=== PATIENT | female | born 1955 | race Caucasian/White ===

== ENCOUNTER → 2018-02-09 | Outpatient (CLI) | payer BC ==
[~2018-02-09] MED LIST: CLONIDINE HCL0.2 MG PO; ELMIRON100 MG PO; MULTIVITAMINS1 EAC7 PO; PANTOPRAZOLE SO40 MG PO; PREMARIN0.625 MG PO; TYLENOL; VERAPAMIL ER120 MG PO
--- NOTE | 2018-02-09 11:14 | Diagnostic Imaging Report ---
EXAMINATION: Thyroid ultrasound. CLINICAL HISTORY: Abnormal thyroid function tests COMPARISON: None. . DISCUSSION: Transverse and longitudinal images of the thyroid were obtained utilizing grayscale and color Doppler modalities. The right thyroid lobe measures 4.1 x 1.4 x 1.6 cm and shows normal echogenicity. Superior pole 0.3 cm cyst. No nodule. The left thyroid lobe measures 4.2 x 1.7 x 1.4 cm and shows normal echogenicity. No nodules are seen. The thyroid isthmus measures 0.2 cm and shows normal echogenicity. No nodules are seen. There is no adenopathy. IMPRESSION: Normal appearance of the thyroid gland without nodule. Signed by: Dr. Andrea Mo M.D. on 02/09/2018 11:11 AM
== END ==
LOC: NM 09:37
PROVIDERS: ATTEND Family Medicine
DX: R94.6 Abnormal results of thyroid function studies (principal); R79.89 Other specified abnormal findings of blood chemistry
CPT/HCPCS: 76536

== ENCOUNTER → 2018-03-09 | Day surgery (SDC) | payer BC ==
[~2018-03-09] MED LIST changes: +FENTANYL CITRATE/PF 100MCG/2 ML INJ ONE; +KETAMINE HCL INJ 50 MG/ML 10 ML VIAL ONE; +MIDAZOLAM HCL 2 MG/2 ML VIAL ONE; +PROPOFOL IV EMULSION 10 MG/ML 50 ML VIAL ONE
--- OUTSIDE RECORDS SUMMARY | 2018-03-09 07:33 | XMS REPORT ---
[facility] Address Unknown Phone Unavailable Care Team Providers Care Attendant [place] Name Role Phone PERLA MARTIN Unavailable Unavailable Problems This patient has no known problems. Allergies, Adverse Reactions, Alerts This patient has no known allergies or adverse reactions. Medications This patient has no known medications. Results Test Description Test Time Test Comments Text Results Atomic Results Result Comments US THYROID 2018-02-09 11:10:00 [facility] [address] [address] Patient Name: CARLITA GLYNN MR #: [id number] : 1955 Age/Sex: 62/F Req #: [id number] [facility] Physician: Ordered by: PERLA MARTIN DO Report #: [id number] Location: ID Room/Bed: Procedure: [id number] US/US THYROID Exam Date: 02/09/18 Exam Time: 1029 REPORT STATUS: Signed EXAMINATION: Thyroid ultrasound. CLINICAL HISTORY: Abnormal thyroid function tests COMPARISON: None. . DISCUSSION: Transverse and longitudinal images of the thyroid were obtained utilizing grayscale and color Doppler modalities. The right thyroid lobe measures 4.1 x 1.4 x 1.6 cm and shows normal echogenicity. Superior pole 0.3 cm cyst. No nodule. The left thyroid lobe measures 4.2 x 1.7 x 1.4 cm and shows normal echogenici ty. No nodules are seen. The thyroid isthmus measures 0.2 cm and shows normal echogenicity. No nodules are seen. There is no adenopathy. IMPRESSION: Normal appearance of the thyroid gland without nodule. Signed by: Dr. Mario Guerrero M.D. on 02/09/2018 11:11 AM Dictated By: MARIO GUERRERO MD 1111 Transcribed By: DOLORES on 02/09/18 1111 COPY TO: PERLA MARTIN DO SCR MAMM BILATERAL CORAZON CAD DIGITAL 2018-01-29 15:46:09 - SCR MAMM BILATERAL CORAZON CAD DIGITALBILATERAL DIGITAL SCREENING MAMMOGRAM 3D/2D WITH CAD: 01/27/2018CLINICAL: Asymptomatic. Digital breast tomosynthesis was performed in addition to routine CC and MLO views. Current mammographic images were evaluated by either a [employer] M-Vu or a Xpresocker CAD (computer aided detection system). Comparison is made to exams dated 01/14/2017 mammogram, mammogram, 11/22/2014 mammogram - [facility]-, 07/11/2013 mammogram, and 10/31/2011 mammogram - [facility]. The tissue of both breasts is heterogeneously dense. This may lower the sensitivity of mammography. No suspicious mass, architectural distortion, malignant type calcification, or lymph node abnormality detected. Breast architecture is stable compared to prior exams.IMPRESSION: NEGATIVEThere is no mammographic evidence of malignancy. Resume annual screening mammography in one year. Cate porter/penrad:01/29/2018 15:46:09 End Polisher: Michelle Wan, [facility]-FWletter sent: BIRADS 1-2 Normal Mammogram BI-RADS: 1 Negative SCR MAMM BILATERAL CORAZON CAD DIGITAL 2018-01-29 15:46:09 - SCR MAMM BILATERAL CORAZON CAD DIGITALBILATERAL DIGITAL SCREENING MAMMOGRAM 3D/2D WITH CAD: 01/27/2018CLINICAL: Asymptomatic. Digital breast tomosynthesis was performed in addition to routine CC and MLO views. Current mammographic images were evaluated by either a [employer] M-Vu or a shenzhoufu ImageRenal [employer]cker CAD (computer aided detection system). Comparison is made to exams dated 01/14/2017 mammogram, mammogram, 11/22/2014 mammogram - [facility], 07/11/2013 mammogram, and 10/31/2011 mammogram - [facility]. The tissue of both breasts is heterogeneously dense. This may lower the sensitivity of mammography. No suspicious mass, architectural distortion, malignant type calcification, or lymph node abnormality detected. Breast architecture is stable compared to prior exams.IMPRESSION: NEGATIVEThere is no mammographic evidence of malignancy. Resume annual screening mammography in one year. Cate porter/penrad:01/29/2018 15:46:09 End Polisher: Michelle Wan, [facility]-FWletter sent: BIRADS 1-2 Normal Mammogram BI-RADS: 1 Negative
[2018-03-09 11:50] VITALS: BP 145/93
--- NOTE | 2018-03-09 14:21 | Operative Report ---
DATE OF PROCEDURE: March 09, 2018 REFERRING PHYSICIAN: Dr. Raymond Martin PROCEDURES PERFORMED 1. Esophagogastroduodenoscopy with esophageal dilatation. 2. Flexible sigmoidoscopy. INDICATIONS FOR EGD: Dysphagia. INDICATIONS FOR COLONOSCOPY: Lower abdominal pain, history of Crohn disease and personal history of colon polyps. MEDICATION: Patient was done under MAC. Please see anesthesiologist's note. PROCEDURE: With the patient in the left lateral decubitus position, the flexible fiberoptic Olympus gastroscope was introduced into the esophagus under direct visualization without any difficulty. There was some patchy erythema noted in the distal esophagus. The esophagus was then dilated to size 52-[employer] Mercado. The scope was advanced with ease into the stomach. Mucosa overlying the antrum and the body revealed some patchy intense erythema and low-grade to moderate edema, and biopsies were obtained and sent to stain for H. pylori. Also, minute hyperplastic appearing polyps were noted in the body. Some were partially excised with the cold biopsy forceps. The pylorus was of normal contour and shape. It was intubated with ease. The scope was advanced all the way to the 2nd portion of the duodenum. Biopsies were obtained from the proximal 2nd portion to rule out sprue. The nodule was noted that was minute in bulb and that was biopsied. The scope was then withdrawn back into the stomach and retroflexed. The mucosa overlying the fundus and the cardia appeared to be within normal limits. The scope was then straightened out. It was subsequently withdrawn. Patient tolerated the procedure well. IMPRESSION 1. Esophageal stricture dilated to size 52-[employer] Mercado. 2. Gastritis, biopsied. Biopsies sent to stain for Helicobacter pylori. 3. Gastric polyps, some partially excised with the cold biopsy forceps. 4. Duodenal bulb nodule, biopsied. 5. Rule out sprue. PLAN: Follow up histology. Increase Protonix to 40 mg 1 p.o. a.c. b.i.d. The patient was then turned around. After adequate lubrication of the anal canal, a flexible fiberoptic Olympus colonoscope was inserted into the rectum with ease and advanced to approximately 18 cm from the anal verge. The scope was not advanced any further due to the presence of a large fecal impaction. It was then withdrawn back into the rectum and retroflexed. Moderate size internal hemorrhoids were noted, none of which was actively bleeding. The scope was then straightened out. It was subsequently withdrawn. Patient tolerated the procedure well. IMPRESSION 1. Flexible sigmoidoscopy to approximately 18 cm from the anal verge. Could not advance any further secondary to the presence of a large fecal impaction. 2. Internal hemorrhoids, none actively bleeding. PLAN: Patient will need a followup colonoscopy after a better prep. Job#: [id number] RI cc:PERLA MARTIN DO
== END | disposition home or self-care (01) ==
LOC: OR 07:31
PROVIDERS: ATTEND Internal Medicine Gastroenterology
DX: K50.90 Crohn's disease, unspecified, without complications (principal); Z86.010 Personal history of colon polyps; K31.7 Polyp of stomach and duodenum; K29.70 Gastritis, unspecified, without bleeding; K22.2 Esophageal obstruction; K56.41 Fecal impaction; K31.89 Other diseases of stomach and duodenum; K64.8 Other hemorrhoids; I10 Essential (primary) hypertension; N20.0 Calculus of kidney; Z88.2 Allergy status to sulfonamides; Z88.6 Allergy status to analgesic agent; Z01.810 Encounter for preprocedural cardiovascular examination
CPT/HCPCS: 43239; 43450; 45330; 93005; J2250; 45378

== ENCOUNTER 2019-06-14 15:03 | Emergency (ER) | payer BC ==
[~2019-06-14] VITALS: Ht 175.3 cm; Wt 58.5 kg
[~2019-06-14 15:03] MED LIST changes: -FENTANYL CITRATE/PF 100MCG/2 ML INJ ONE; -KETAMINE HCL INJ 50 MG/ML 10 ML VIAL ONE; -MIDAZOLAM HCL 2 MG/2 ML VIAL ONE; -PROPOFOL IV EMULSION 10 MG/ML 50 ML VIAL ONE
--- NOTE | 2019-06-14 15:41 | Diagnostic Imaging Report ---
Examination: CT BRAIN WO CONTRAST History:Slurred speech. Left lower extremity weakness. Comparison studies:None Technique: Axial images were obtained from the skull base to the vertex. Coronal and sagittal images reconstructed from the axial data. Dose modulation, iterative reconstruction, and/or weight based adjustment of the mA/kV was utilized to reduce the radiation dose to as low as reasonably achievable. Intravenous contrast: None Findings: Scalp: No abnormalities. Bones: No fractures, blastic or lytic lesions. Brain sulci: Appropriate for age. Ventricles: Normal in size and configuration. No hydrocephalus. Extra-axial space: No abnormalities. Parenchyma: Age indeterminate infarct in the right striatocapsular region (right caudate head, anterior limb of the right internal capsule and right putamen). No masses, hemorrhage. Sellar/suprasellar region: No abnormalities. Craniocervical junction: Patent foramen magnum. No Chiari one malformation. Incidental findings: None. 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 No hemorrhage. Dr. Frida Rodriguez discussed findings and recommendations with Dr. Rao on 06/14/2019 at 1536 hours. Signed by: Dr. Frida Rodriguez M.D. on 06/14/2019 3:38 PM
[2019-06-14 15:57] LABS: BASOPHILS % 0.4 % (0.0-1.0); EOSINOPHILS # (AUTO) 0.1 (0.0-0.4); HEMATOCRIT 37.7 % (34.2-44.1); HEMOGLOBIN 12.1 g/dL (12.0-16.0); LYMPHOCYTES # (AUTO) 1.8 (1.0-3.2); LYMPHOCYTES % 35.9 % (18.0-39.1); MEAN CORPUSCULAR HEMOGLOBIN 28.5 pg (28-32); MEAN CORPUSCULAR HGB CONC 32.1 g/dL (31-35); MEAN CORPUSCULAR VOLUME 88.7 fL (81-99); MONOCYTES # (AUTO) 0.6 (0.2-0.8); NEUTROPHILS # (AUTO) 2.5 (2.1-6.9); NEUTROPHILS % 50.5 % (38.7-80.0); PLATELET COUNT 285 x10e3/uL (140-360); RED BLOOD COUNT 4.25 x10e6/uL (3.6-5.1); RED CELL DISTRIBUTION WIDTH 17.5 % (11.7-14.4)
[2019-06-14 16:15] LABS: ALANINE AMINOTRANSFERASE 20 IU/L (0-55); ALBUMIN 3.4 g/dL (3.5-5.0); ALKALINE PHOSPHATASE 102 IU/L (40-150); ANION GAP 8.5 mmol/L (8-16); BLOOD UREA NITROGEN 12 mg/dL (7-26); BUN/CREATININE RATIO 15 (6-25); CALCIUM 9.2 mg/dL (8.4-10.2); CARBON DIOXIDE 26 mmol/L (22-29); CHLORIDE 110 mmol/L (98-107); CREATINE KINASE 41 IU/L (29-168); CREATININE, SERUM 0.78 mg/dL (0.57-1.11); EST GLOMERULAR FILTRATION RATE > 60 ML/MIN (60-); GLUCOSE 126 mg/dL (74-118); POTASSIUM 3.5 mmol/L (3.5-5.1); SODIUM 141 mmol/L (136-145)
[2019-06-14 17:27] LABS: CLARITY,URINE CLEAR (CLEAR); COLOR,URINE YELLOW (YELLOW); LEUKOCYTE ESTERASE ,URINE NEGATIVE (NEGATIVE)
[2019-06-14 17:28] LABS: BILIRUBIN,URINE NEGATIVE (NEGATIVE); KETONES,URINE NEGATIVE (NEGATIVE); NITRITE,URINE NEGATIVE (NEGATIVE); PROTEIN,URINE DIPSTICK NEGATIVE (NEGATIVE); URINE UROBILINOGEN 0.2 mg/dL (0.2 - 1)
[2019-06-14] MEDS ORDERED: HYDRALAZINE HCL 20 MG/ML VIAL ONE (17:29)
[2019-06-14 17:37] LABS: BACTERIA,URINE MANY /HPF; EPITHELIAL CELLS,URINE FEW /LPF
[2019-06-14] MEDS: HYDRALAZINE HCL 20 MG/ML VIAL IV ONE (17:40)
[2019-06-14] MEDS: ASPIRIN 81 MG CHEW TAB PO ONE (17:40)
[2019-06-14] MEDS: SODIUM CHLORIDE 0.9% 1000ML 1,000 ML IV STA (17:40)
--- NOTE | 2019-06-14 17:40 | NUR ---
Echo completed. Noted BP 192/93, Notified Dr. Rao, v/o given for 5mg hydralazine and 1liter NS bolus.
--- NOTE | 2019-06-14 18:40 | NUR ---
Report given to Tresa YEUNG at [facility] ph: [phone]. Pt will go to rm [id number]. EMS called ETA [id number]
--- NOTE | 2019-06-14 19:08 | NUR ---
No neurological deficits noted at this time.
[2019-06-14] MEDS: KETOROLAC TROMETHAMINE 30 MG/ML VIAL IV STA (19:51)
--- NOTE | 2019-06-14 20:04 | NUR ---
Report to [facility]
[2019-06-14 20:22] VITALS: BP 156/84
== END 2019-06-14 20:25 | disposition other institution (70) ==
LOC: ER 15:03
DX: I61.0 Nontraumatic intracerebral hemorrhage in hemisphere, subcortical (principal); I63.321 Cerebral infarction due to thrombosis of right anterior cerebral artery; R26.2 Difficulty in walking, not elsewhere classified
CPT/HCPCS: 36415; 70450; 80053; 81001; 82550; 82553; 83880; 84484; 85025; 93005; 93306; 99284; J0360; J1885; J7030